=== PATIENT | female | born 1980 | race Two or more races ===

== ENCOUNTER 2024-06-02 09:22 | Emergency (ER) | payer SELFPAY ==
[~2024-06-02] VITALS: Ht 167.6 cm; Wt 73.0 kg
[2024-06-02 09:25] VITALS: O2SAT 98
[2024-06-02] MEDS: LORAZEPAM 1MG TABLET PO STA (09:40)
[2024-06-02 09:42] VITALS: BP 135/85; PULSE 84; RESP 14; TEMP 98.5
[2024-06-02 10:00] LABS: BASOPHILS % 0.3 % (0.0-2.0); HEMATOCRIT. 38.8 % (36.0-48.0); HEMOGLOBIN. 13.7 g/dL (12.0-16.0); LYMPHOCYTES % 18.2 % (20.0-50.0); MEAN CORPUSCULAR HEMOGLOBIN 32.1 pg (28.0-32.0); MEAN CORPUSCULAR HGB CONC 35.4 g/dL (31.0-37.0); MEAN CORPUSCULAR VOLUME 90.6 fL (81.0-99.0); MEAN PLATELET VOLUME 8.2 fl (7.4-10.4); MONOCYTES % 8.4 % (2.0-8.0); NEUTROPHILS % 72.1 % (40.0-76.0); PLATELET 284 x1000/uL (130-400); RED BLOOD CELL COUNT 4.28 mill/uL (4.2-5.4); RED CELL DISTRIBUTION WIDTH 12.9 % (11.6-14.6); WHITE BLOOD COUNT 8.6 x1000/uL (4.5-11.0)
[2024-06-02 10:06] LABS: CHLORIDE 111 mEq/L (98-107); POTASSIUM 3.3 mEq/L (3.5-5.1); SODIUM 142 mEq/L (136-145)
[2024-06-02 10:07] LABS: CARBON DIOXIDE 24 mEq/L (21-32)
[2024-06-02 10:08] LABS: CALCIUM 9.1 mg/dL (8.7-10.4)
[2024-06-02 10:12] LABS: CREATININE 0.7 mg/dL (0.6-1.0); GLUCOSE 101 mg/dL (70-105)
[2024-06-02 10:13] LABS: ETHANOL BLOOD < 10 mg/dL (<10); UREA NITROGEN BLOOD 15 mg/dL (9-23)
[2024-06-02 10:25] LABS: HCG SCREEN NEGATIVE
== END 2024-06-02 10:50 | disposition home or self-care (01) ==
LOC: ER 09:41
DX: F99 Mental disorder, not otherwise specified (principal)
CPT/HCPCS: 36415; 80048; 80320; 84703; 85025; 99283; G0480